=== PATIENT | female | born 1990 | race Caucasian/White ===

== ENCOUNTER 2020-05-29 15:40 | Observation (INO) | payer BC ==
[~2020-05-29] VITALS: Ht 154.9 cm; Wt 101.6 kg
[2020-05-29 16:44] LABS: BILIRUBIN,URINE NEGATIVE (NEG); CLARITY,URINE CLEAR; COLOR,URINE YELLOW; NITRITE,URINE NEGATIVE (NEG); PH,URINE 6.5 (<5.0-8.0); PROTEIN,URINE 30 mg/dL (NEG-TRACE); UROBILINOGEN,URINE 0.2 mg/dL (0.2 mg/dL)
[2020-05-29 16:47] LABS: AMNIO PT NEGATIVE
[2020-05-29 16:52] LABS: BACTERIA,URINE MANY /HPF (0-FEW)
[2020-05-29 16:53] LABS: WBC,URINE OCC /HPF (0-4)
[2020-05-29 16:54] LABS: RBC,URINE 0 /HPF (0-2)
== END 2020-05-29 18:00 | disposition home or self-care (01) ==
LOC: 3 SO LND 15:40
PROVIDERS: ADMIT Obstetrics & Gynecology; ATTEND Obstetrics & Gynecology
DX: O62.9 Abnormality of forces of labor, unspecified (principal); Z20.828 Contact with and (suspected) exposure to other viral communicable diseases; O42.92 Full-term premature rupture of membranes, unspecified as to length of time between rupture and onset of labor; O26.893 Other specified pregnancy related conditions, third trimester; N89.8 Other specified noninflammatory disorders of vagina; Z3A.39 39 weeks gestation of pregnancy; Z79.899 Other long term (current) drug therapy
CPT/HCPCS: 36415; 59025; 81001; 84112; 87086; G0378; G0379

== ENCOUNTER 2020-05-31 06:39 | Inpatient (IN) | payer BC ==
[~2020-05-31] VITALS: Ht 154.9 cm; Wt 102.1 kg
[2020-05-31] MEDS ORDERED: IV RINGERS,LACTATED 1000ML 1,000 ML IV PRN (07:00)
[2020-05-31 07:30] LABS: BILIRUBIN,URINE NEGATIVE (NEG); CLARITY,URINE CLEAR; COLOR,URINE YELLOW; NITRITE,URINE NEGATIVE (NEG); PH,URINE 6.5 (<5.0-8.0); PROTEIN,URINE NEGATIVE (NEG-TRACE); UROBILINOGEN,URINE 0.2 mg/dL (0.2 mg/dL)
[2020-05-31 07:50] LABS: BACTERIA,URINE FEW /HPF (0-FEW); RBC,URINE 0 /HPF (0-2)
[2020-05-31] MEDS ORDERED: fentaNYL PF VIAL 100 MCG/2 ML VIAL IVP PRN (08:45)
[2020-05-31] MEDS ORDERED: TERBUTALINE 1 MG/ML VIAL. SQ PRN (08:45)
[2020-05-31] MEDS ORDERED: LIDOCAINE 1% PF 30 ML VIAL. INJ PRN (08:45)
[2020-05-31] MEDS ORDERED: 0.9 % SODIUM CHLORIDE 10 ML DISP.SYRIN. IV PRN ×2 (08:45→18:15)
[2020-05-31] MEDS ORDERED: OXYTOCIN 30 UNIT/500 ML PREMIX 500 ML IV PRN ×2 (08:45→18:15)
[2020-05-31] MEDS ORDERED: CITRIC ACID/SODIUM CITRATE 30 ML SOLUTION. PO PRN (08:45)
[2020-05-31] MEDS ORDERED: BUTORPHANOL 2 MG/ML VIAL. IVP PRN (08:45)
[2020-05-31 08:51] VITALS: BP 112/63
[2020-05-31 09:10] LABS: BASO # 0.1 x10^3/uL (0.0-0.2); BASO % 1 % (0-3); EOS % 0 % (0-3); HEMATOCRIT 39.3 % (36.0-47.0); LYMPH # 1.9 x10^3/uL (1.0-4.8); LYMPH % 16 % (24-48); MEAN CORPUSCULAR HEMOGLOBIN 28 pg (25-35); MEAN CORPUSCULAR HGB CONC 33 g/dL (31-37); MEAN CORPUSCULAR VOLUME 83 fL (79-100); MONO # 0.7 x10^3/uL (0.0-1.1); MONO % 5 % (0-9); NEUT # 9.7 x10^3/uL (1.8-7.7); NEUT % 79 % (31-73); PLATELET COUNT 205 x10^3/uL (140-400); RED BLOOD COUNT 4.73 x10^6/uL (3.50-5.40); RED CELL DISTRIBUTION WIDTH 15.2 % (11.5-14.5); WHITE BLOOD COUNT 12.3 x10^3/uL (4.0-11.0)
[2020-05-31] MEDS: IV RINGERS,LACTATED 1000ML 1,000 ML IV SCH ×2 (09:17→16:45)
[2020-05-31] MEDS ORDERED: ROPIVacaine 0.2% PF 10 ML VIAL. ONE ×2 (09:42→10:00)
[2020-05-31] MEDS ORDERED: fentaNYL PF VIAL 100 MCG/2 ML VIAL EPID ONE (09:45)
[2020-05-31] MEDS ORDERED: ePHEDrine PF IN SALINE 50 MG/10 ML SYRINGE. IV PRN (09:45)
[2020-05-31] MEDS ORDERED: ONDANSETRON PF 4 MG/2 ML VIAL. IV PRN (09:45)
[2020-05-31] MEDS ORDERED: IV RINGERS,LACTATED 1000ML 1,000 ML IV ONE (09:45)
[2020-05-31] MEDS ORDERED: NALOXONE 0.4 MG/ML VIAL. IV PRN (09:45)
[2020-05-31] MEDS: L&D EPIDURAL SYRINGE 50 ML EPID PRN ×2 (13:15→16:45)
--- NOTE | 2020-05-31 18:05 | PDOC1 ---
OB - History Hx of Present Care: Good Care Ultrasounds: Normal mid trimester US Obstetrical Complications: None Medical Complications: None Past Family/Social History * Past Medical, Surgical, Family and Obstetric Histories reviewed from chart. Rubella: Immune RPR/VDRL: Negative GBS Status: Negative HBsAG: Negative OB - Chief Complaint & HPI Date of Admission: Date of Admission: May 31, 2020 at 06:39 Chief Complaint/History : 3 Para: 2 EGA: 40 Reason for admission: active labor Admission Nurse Assessment Rev: Yes OB - Admission Exam Physical Exam Vitals: VS - Last 72 Hours, by Label Date Time Temp Pulse Resp B/P (MAP) Pulse Ox O2 Delivery O2 Flow Rate FiO2 05/31/20 16:45 20 98 Room Air 05/31/20 13:45 20 98 Room Air 05/31/20 13:15 20 98 Room Air 05/31/20 08:51 99.2 89 20 112/63 (79) 99.2 HEENT: Normal Heart: Regular Rate Lungs: Clear Abdomen: Gravid, Non tender, Soft Extremities: Edema Reflexes: Normal Cervical Dilatation: 3cm Effacement: 100% Station: -1 Membranes: Intact Heart Rate: Normal Accelerations: Accelerations Present Decelerations: No decelerations Contractions on Admission: 6-10 Minutes Apart Intensity: Moderate Text A: 40 wks IUP Active labor P: Admit labor management. JENNI BLAND Jr, MD May 31, 2020 18:05
--- NOTE | 2020-05-31 18:06 | PDOC ---
VAGINAL DELIVERY DATE DATE: 05/31/20 TIME: 18:05 : 3 Para: 3 EGA: 40 VAGINAL DELIVERY: VTX VACCUM ASSISTED: No PLACENTA: Spontaneous 8/9 SEX: Female WEIGHT Weight [ 3785 gm ] Nuchal Cord: Yes, Times 1 Amniotic Fluid: Clear PAIN: Epidural EPISIOTOMY: No EXTENSION: No EBL 300 ml COMPLICATIONS none Signs of Intrauterine Infectio: None Shoulder Dystocia: No JENNI BLAND Jr, MD May 31, 2020 18:06
[2020-05-31] MEDS ORDERED: SIMETHICONE 80 MG TAB.CHEW PO PRN (18:15)
[2020-05-31] MEDS ORDERED: oxyCODONE/APAP 5/325 1 TAB TABLET PO PRN (18:15)
[2020-05-31] MEDS ORDERED: DOCUSATE SODIUM 100 MG CAPSULE. PO PRN (18:15)
[2020-05-31] MEDS ORDERED: HYDROCORTISONE 1% TOPICAL OINTMENT 30GM TUBE. TP PRN (18:15)
[2020-05-31] MEDS ORDERED: MAG HYDROX/ALUMINUM HYD/SIMETH 30 ML ORAL.SUSP PO PRN (18:15)
[2020-05-31] MEDS ORDERED: ACETAMINOPHEN 325 MG TABLET. PO PRN (18:15)
[2020-05-31] MEDS ORDERED: PHENYLEPH/MINERAL OIL/PETROLAT RECTAL OINTMENT TUBE. RC PRN (18:15)
[2020-05-31] MEDS ORDERED: TDaP (Adacel) per PROTOCOL. MC PRN (18:15)
[2020-05-31] MEDS ORDERED: MMR per PROTOCOL. MC PRN (18:15)
[2020-05-31] MEDS ORDERED: IBUPROFEN 400 MG TABLET. PO PRN (18:15)
[2020-05-31] MEDS ORDERED: ZOLPIDEM 5 MG TABLET. PO PRN (18:15)
[2020-05-31] MEDS ORDERED: BENZOCAINE 20% TOPICAL AEROSOL SPRAY 57GM CAN. TP PRN (18:15)
[2020-05-31] MEDS ORDERED: MAGNESIUM HYDROXIDE 2,400 MG/30 ML ORAL.SUSP. PO PRN (18:15)
[2020-05-31] MEDS ORDERED: diphenhydrAMINE HCL 25 MG CAPSULE PO PRN (18:15)
[2020-05-31] MEDS: IBUPROFEN 400 MG TABLET. PO PRN (19:22)
[2020-05-31 21:20] VITALS: BP 97/48
[2020-05-31 22:30] VITALS: BP 106/42
[2020-06-01] MEDS: IV RINGERS,LACTATED 1000ML 1,000 ML IV SCH ×3 (00:45→16:45)
[2020-06-01 02:40] VITALS: BP 109/54
[2020-06-01] MEDS: IBUPROFEN 400 MG TABLET. PO PRN ×3 (05:20→23:27)
[2020-06-01 05:36] VITALS: BP 125/74
[2020-06-01] MEDS ORDERED: FERROUS SULFATE 325 MG TABLET. PO SCH (08:00)
[2020-06-01 08:31] LABS: BASO % 1 % (0-3); EOS % 0 % (0-3); HEMATOCRIT 32.8 % (36.0-47.0); HEMOGLOBIN 11.2 g/dL (12.0-15.5); LYMPH # 1.9 x10^3/uL (1.0-4.8); LYMPH % 18 % (24-48); MEAN CORPUSCULAR HEMOGLOBIN 28 pg (25-35); MEAN CORPUSCULAR HGB CONC 34 g/dL (31-37); MEAN CORPUSCULAR VOLUME 83 fL (79-100); MONO # 0.6 x10^3/uL (0.0-1.1); MONO % 5 % (0-9); NEUT # 8.2 x10^3/uL (1.8-7.7); NEUT % 76 % (31-73); PLATELET COUNT 163 x10^3/uL (140-400); RED BLOOD COUNT 3.95 x10^6/uL (3.50-5.40); RED CELL DISTRIBUTION WIDTH 15.6 % (11.5-14.5); WHITE BLOOD COUNT 10.7 x10^3/uL (4.0-11.0)
[2020-06-01] MEDS: MULTIVITAMIN with MINERAL TABLET. PO SCH (08:45)
--- NOTE | 2020-06-01 12:41 | PDOC ---
OB Progress Note Date of Service 06/01/20 Time of Evaluation 1240 Notes Pt. feeling well. No complaints. Lab Laboratory Tests Test 05/31/20 06:50 05/31/20 08:40 05/31/20 08:45 06/01/20 08:15 Urine Collection Type Unknown Urine Color Yellow Urine Clarity Clear Urine pH 6.5 (<5.0-8.0) Urine Specific [place] 1.020 (1.000-1.030) Urine Protein Negative mg/dL (NEG-TRACE) Urine Glucose (UA) Negative mg/dL (NEG) Urine Ketones (Stick) Negative mg/dL (NEG) Urine Blood Small (NEG) Urine Nitrite Negative (NEG) Urine Bilirubin Negative (NEG) Urine Urobilinogen Dipstick 0.2 mg/dL (0.2 mg/dL) Urine Leukocyte Esterase Negative (NEG) Urine RBC 0 /HPF (0-2) Urine WBC 11-20 /HPF (0-4) Urine Squamous Epithelial Cells Many /LPF Urine Bacteria Few /HPF (0-FEW) Urine Mucus Slight /LPF White Blood Count 12.3 x10^3/uL (4.0-11.0) 10.7 x10^3/uL (4.0-11.0) Red Blood Count 4.73 x10^6/uL (3.50-5.40) 3.95 x10^6/uL (3.50-5.40) Hemoglobin 13.0 g/dL (12.0-15.5) 11.2 g/dL (12.0-15.5) Hematocrit 39.3 % (36.0-47.0) 32.8 % (36.0-47.0) Mean Corpuscular Volume 83 fL (79-100) 83 fL (79-100) Mean Corpuscular Hemoglobin 28 pg (25-35) 28 pg (25-35) Mean Corpuscular Hemoglobin Concent 33 g/dL (31-37) 34 g/dL (31-37) Red Cell Distribution Width 15.2 % (11.5-14.5) 15.6 % (11.5-14.5) Platelet Count 205 x10^3/uL (140-400) 163 x10^3/uL (140-400) Neutrophils (%) (Auto) 79 % (31-73) 76 % (31-73) Lymphocytes (%) (Auto) 16 % (24-48) 18 % (24-48) Monocytes (%) (Auto) 5 % (0-9) 5 % (0-9) Eosinophils (%) (Auto) 0 % (0-3) 0 % (0-3) Basophils (%) (Auto) 1 % (0-3) 1 % (0-3) Neutrophils # (Auto) 9.7 x10^3/uL (1.8-7.7) 8.2 x10^3/uL (1.8-7.7) Lymphocytes # (Auto) 1.9 x10^3/uL (1.0-4.8) 1.9 x10^3/uL (1.0-4.8) Monocytes # (Auto) 0.7 x10^3/uL (0.0-1.1) 0.6 x10^3/uL (0.0-1.1) Eosinophils # (Auto) 0.0 x10^3/uL (0.0-0.7) 0.0 x10^3/uL (0.0-0.7) Basophils # (Auto) 0.1 x10^3/uL (0.0-0.2) 0.0 x10^3/uL (0.0-0.2) Treponema pallidum Antibody Nonreactive (Nonreactive) SARS-CoV-2 Antigen (Rapid) Negative (NEGATIVE) Laboratory Tests Test 06/01/20 08:15 White Blood Count 10.7 x10^3/uL (4.0-11.0) Red Blood Count 3.95 x10^6/uL (3.50-5.40) Hemoglobin 11.2 g/dL (12.0-15.5) Hematocrit 32.8 % (36.0-47.0) Mean Corpuscular Volume 83 fL (79-100) Mean Corpuscular Hemoglobin 28 pg (25-35) Mean Corpuscular Hemoglobin Concent 34 g/dL (31-37) Red Cell Distribution Width 15.6 % (11.5-14.5) Platelet Count 163 x10^3/uL (140-400) Neutrophils (%) (Auto) 76 % (31-73) Lymphocytes (%) (Auto) 18 % (24-48) Monocytes (%) (Auto) 5 % (0-9) Eosinophils (%) (Auto) 0 % (0-3) Basophils (%) (Auto) 1 % (0-3) Neutrophils # (Auto) 8.2 x10^3/uL (1.8-7.7) Lymphocytes # (Auto) 1.9 x10^3/uL (1.0-4.8) Monocytes # (Auto) 0.6 x10^3/uL (0.0-1.1) Eosinophils # (Auto) 0.0 x10^3/uL (0.0-0.7) Basophils # (Auto) 0.0 x10^3/uL (0.0-0.2) Medications Current Medications Ringer's Solution 1,000 ml @ 125 mls/hr Q8H PRN IV SEE I/O RECORD Last administered on 05/31/20at 16:41; Start 05/31/20 at 07:00 Sodium Chloride (Normal Saline Flush) 3 ml QSHIFT PRN IV AFTER MEDS AND BLOOD DRAWS; Start 05/31/20 at 08:45 Ringer's Solution 1,000 ml @ 125 mls/hr Q8H IV Last administered on 05/31/20at 09:17; Start 05/31/20 at 08:45 Butorphanol Tartrate (Stadol) 2 mg PRN Q1HR PRN IVP Severe labor pain; Start 05/31/20 at 08:45 Fentanyl Citrate (Fentanyl 2ml Vial) 100 mcg PRN Q20MIN PRN IVP Labor pain; Start 05/31/20 at 08:45 Citric Acid/ Sodium Citrate (Bicitra) 30 ml 1X PRN PRN PO DYSPEPSIA; Start 05/31/20 at 08:45; Stop 06/01/20 at 08:44; Status DC Terbutaline Sulfate (Brethine) 0.25 mg 1X PRN PRN SQ SEE COMMENTS; Start 05/31/20 at 08:45; Stop 06/01/20 at 08:44; Status DC Lidocaine HCl (Xylocaine 1% Pf 30ml Vial) 30 ml 1X PRN PRN INJ SEE COMMENTS; Start 05/31/20 at 08:45; Stop 06/02/20 at 08:44 Oxytocin 500 ml @ 0 mls/hr CONT PRN PRN IV Post delivery bleeding Last administered on 05/31/20at 14:32; Start 05/31/20 at 08:45 Ibuprofen (Motrin) 800 mg PRN Q6HRS PRN PO INFLAMMATION Last administered on 06/01/20at 05:20; Start 05/31/20 at 08:45 Ringer's Solution 1,000 ml @ 0 mls/hr Q0M ONCE IV Last administered on 05/31/20at 10:20; Start 05/31/20 at 09:45; Stop 05/31/20 at 09:46; Status DC Ephedrine Sulfate (ePHEDrine PF IN SALINE SYRINGE) 10 mg PRN Q2MIN PRN IV IF SBP<90; Start 05/31/20 at 09:45 Naloxone HCl (Narcan) 0.04 mg PRN Q1MIN PRN IV SEE COMMENTS; Start 05/31/20 at 09:45 Fentanyl Citrate (Fentanyl 2ml Vial) 100 mcg 1X ONCE EPID ; Start 05/31/20 at 09:45; Stop 05/31/20 at 09:46; Status DC Fentanyl Citrate 50 ml @ 14 mls/hr CONT PRN EPID PAIN Last administered on 05/31/20at 16:45; Start 05/31/20 at 09:45 Ondansetron HCl (Zofran) 4 mg PRN Q6HRS PRN IV NAUSEA/VOMITING; Start 05/31/20 at 09:45 Ropivacaine (Naropin 0.2%) 10 ml STK-MED ONCE .ROUTE ; Start 05/31/20 at 09:42; Stop 05/31/20 at 09:42; Status DC Sodium Chloride (Normal Saline Flush) 10 ml QSHIFT PRN IV AFTER MEDS AND BLOOD DRAWS; Start 05/31/20 at 18:15 Oxytocin 500 ml @ 62.5 mls/hr CONT PRN IV SEE I/O RECORD; Start 05/31/20 at 18:15; Stop 06/01/20 at 02:14; Status DC Acetaminophen (Tylenol) 650 mg PRN Q6HRS PRN PO MILD PAIN / TEMP > 100.3'F; Start 05/31/20 at 18:15 Ibuprofen (Motrin) 800 mg PRN Q8HRS PRN PO INFLAMMATION/PAIN PREVENTION; Start 05/31/20 at 18:15 Docusate Sodium (Colace) 100 mg PRN BID PRN PO CONSTIPATION Last administered on 06/01/20at 08:44; Start 05/31/20 at 18:15 Magnesium Hydroxide (Milk Of Magnesia) 2,400 mg PRN DAILY PRN PO CONSTIPATION; Start 05/31/20 at 18:15 Al Hydroxide/Mg Hydroxide (Mylanta Plus Xs) 30 ml PRN Q4HRS PRN PO HEARTBURN / GAS; Start 05/31/20 at 18:15 Simethicone (Gas-X) 80 mg PRN AFTMEALHC PRN PO GAS / BLOATING; Start 05/31/20 at 18:15 Diphenhydramine HCl (Benadryl) 25 mg PRN Q6HRS PRN PO ITCHING; Start 05/31/20 at 18:15 Benzocaine (Americaine) 1 spray PRN QID PRN TP TOPICAL PAIN; Start 05/31/20 at 18:15 Phenyleph/Shark Oil/Min Oil/Petrol (Preparation H) 1 aminta PRN QID PRN RC RECTAL PAIN; Start 05/31/20 at 18:15 Hydrocortisone (Cortaid) 1 aminta PRN QID PRN TP PERINEAL PAIN; Start 05/31/20 at 18:15 Ferrous Sulfate (Feosol) 325 mg BIDWMEALS PO ; Start 06/01/20 at 08:00 Zolpidem Tartrate (Ambien) 5 mg PRN QHS PRN PO INSOMNIA, MAY REPEAT X1; Start 05/31/20 at 18:15 Info (Do NOT chart on this placeholder) 1 ea 1X PRN PRN MC SEE COMMENTS; Start 05/31/20 at 18:15 Info (Do NOT chart on this placeholder) 1 ea 1X PRN PRN MC SEE COMMENTS; Start 05/31/20 at 18:15 Oxycodone/ Acetaminophen (Percocet 5/325) 2 tab PRN Q4HRS PRN PO MODERATE PAIN, SEVERE PAIN Last administered on 06/01/20at 07:03; Start 05/31/20 at 18:15 Multivitamins (Thera M Plus) 1 tab DAILY PO Last administered on 06/01/20at 08:45; Start 06/01/20 at 09:00 Ropivacaine (Naropin 0.2%) 10 ml STK-MED ONCE .ROUTE ; Start 05/31/20 at 10:00; Stop 06/01/20 at 08:26; Status DC Exam Abd: soft, non tender, fundus firm Assessment PPD#1 s/p Plan of Care: Continue current Tx, Mgmt JENNI BLAND Jr, MD Jun 01, 2020 12:41
[2020-06-01 13:00] VITALS: BP 115/74
[2020-06-01 20:45] VITALS: BP 116/82
[2020-06-02 06:15] VITALS: BP 123/71
[2020-06-02 08:30] VITALS: BP 113/74
[2020-06-02] MEDS: IBUPROFEN 400 MG TABLET. PO PRN (09:35)
[2020-06-02] MEDS: MULTIVITAMIN with MINERAL TABLET. PO SCH (09:35)
--- NOTE | 2020-06-02 11:46 | PDOC3 ---
OB DISCHARGE SUMMARY DATE OF ADMISSION: 05/31/20 DATE OF DISCHARGE: 06/02/20 REASON FOR ADMISSION: Onset of labor INTRAPARTUM PROCEDURES: Spontanous Vag Deliv DISCHARGE DIAGNOSIS: Term Delivered DISCHARGE INFORMATION: Activity (ad tim), Diet (regular), Instructions (pelvic rest x6 wks) HOSPITAL COURSE Term gestation delivered vaginally without complications JENNI BLAND Jr, MD Jun 02, 2020 11:46
[2020-06-02] MEDS ORDERED: IBUP-1027 PO (11:47)
--- NOTE | 2020-06-02 11:47 | DISCH ---
DISCHARGE INSTRUCTIONS Condition on Discharge Condition on Discharge: Stable Activity After Discharge Activity Instructions for Disc: Activity as tolerated Lifting Instructions after Dis: No heavy lifting Driving Instructions after Dis: Do not drive today Diet after Discharge Diet after Discharge: Regular Contacting the DRMargareth after DC Call your doctor for: Concerns you may have Follow-Up Follow up with: Dr. Murdock in 6 wks JENNI MURDOCK Jr, MD Jun 02, 2020 11:47
[2020-06-02 17:30] VITALS: BP 126/73
--- NOTE | 2020-06-02 18:20 | NUR ---
Discharge and follow up instructions reviewed and given to patient and her along with a Rx. Pt denied any questions or complaints. Pt ambulated out of the hospital with staff and her infant by her side.
== END 2020-06-02 18:20 | disposition home or self-care (01) | DRG 807 ==
LOC: OBSVTOIN 06:39 → 3 SO LND 06:39 → 3 NORTH 21:10
PROVIDERS: ADMIT Obstetrics & Gynecology; ATTEND Obstetrics & Gynecology
PROC: 10E0XZZ Delivery of Products of Conception, External Approach (ICD-10-PCS; principal; 2020-05-31)
PROC: 3E0R3BZ Introduction of Anesthetic Agent into Spinal Canal, Percutaneous Approach (ICD-10-PCS; 2020-05-31)
PROC: 00HU33Z Insertion of Infusion Device into Spinal Canal, Percutaneous Approach (ICD-10-PCS; 2020-05-31)
DX: O69.81X0 Labor and delivery complicated by cord around neck, without compression, not applicable or unspecified (principal); Z37.0 Single live birth; Z3A.40 40 weeks gestation of pregnancy; Z20.828 Contact with and (suspected) exposure to other viral communicable diseases
CPT/HCPCS: 36415; 81001; 85025; 86592; 86850; 86900; 86901; 87086; 87426; G0378; J2590; J2795; J3010; J7120; U0003